=== PATIENT | male | born 1950 | race Caucasian/White ===

== ENCOUNTER 2016-12-25 00:55 | Emergency (ER) | payer MEDICARE, OTHER ==
[~2016-12-25] VITALS: Ht 172.7 cm; Wt 65.8 kg
[2016-12-25] MEDS ORDERED: NITROGLYCERIN 2% OINT 1 GM UNIT DOSE PACKET TOP ONE (01:15)
[2016-12-25] MEDS ORDERED: ASPIRIN 81 MG CHEW (CHILDREN'S ASA) PO ONE (01:15)
[2016-12-25 01:19] LABS: BASOPHILS # (AUTO) 0.1 10^3/uL (0.0-0.1); BASOPHILS % (AUTO) 1 % (0-10); EOSINOPHILS # (AUTO) 0.6 10^3/uL (0.0-0.3); EOSINOPHILS % (AUTO) 9 % (0-10); LYMPHOCYTES # (AUTO) 3.5 X 10^3 (1.0-4.0); LYMPHOCYTES % (AUTO) 53 % (12-44); MEAN CORPUSCULAR HEMOGLOBIN 28 PG (25-34); MEAN CORPUSCULAR HGB CONC 34 G/DL (32-36); MEAN CORPUSCULAR VOLUME 83 FL (80-99); MEAN PLATELET VOLUME 9.7 FL (7.4-10.4); MONOCYTES # (AUTO) 0.6 X 10^3 (0.0-1.0); MONOCYTES % (AUTO) 9 % (0-12); NEUTROPHILS # (AUTO) 1.9 X 10^3 (1.8-7.8); NEUTROPHILS % (AUTO) 28 % (42-75); PLATELET COUNT 318 10^3/uL (130-400); RED BLOOD COUNT 5.63 10^6/uL (4.35-5.85); WHITE BLOOD COUNT 6.7 10^3/uL (4.3-11.0)
[2016-12-25 01:28] LABS: INR 0.9 (0.8-1.4); PROTHROMBIN TIME PATIENT 12.7 SEC (12.2-14.7)
[2016-12-25 01:39] LABS: ALANINE AMINOTRANSFERASE 17 U/L (0-55); ALBUMIN 4.5 GM/DL (3.2-4.5); ANION GAP 13 MMOL/L (5-14); ASPARTATE AMINO TRANSFERASE 21 U/L (5-34); BILIRUBIN,TOTAL 0.8 MG/DL (0.1-1.0); BLOOD UREA NITROGEN 18 MG/DL (7-18); BUN/CREATININE RATIO 15; CALCIUM 10.1 MG/DL (8.5-10.1); CARBON DIOXIDE 24 MMOL/L (21-32); CHLORIDE 105 MMOL/L (98-107); CREATININE SERUM 1.21 MG/DL (0.60-1.30); GFR ESTIMATED 60; GLUCOSE 102 MG/DL (70-105); MAGNESIUM 2.1 MG/DL (1.8-2.4); SODIUM 142 MMOL/L (135-145); TOTAL PROTEIN 8.4 GM/DL (6.4-8.2)
[2016-12-25 01:45] LABS: TROPONIN I < 0.30 NG/ML (<0.30)
[2016-12-25 01:51] LABS: ABG BASE EXCESS -0.9 MMOL/L (-2.5-2.5); ABG HCO3 24 MMOL/L (23-27); ABG OXYGEN SATURATION 96 % (94-100); ABG PCO2 41 MMHG (35-45); ABG PH 7.38 (7.37-7.43); ABG PO2 70 MMHG (79-93); ALLENS TEST YES-POS; PATIENT TEMP 97.2
[2016-12-25] MEDS ORDERED: cloNIDine 0.2 MG (CATAPRES) TAB PO ONE ×2 (02:00→02:30)
[2016-12-25] MEDS ORDERED: methylPREDNISolone 125 MG (Solu-MEDROL) VIAL IVP ONE (02:00)
[2016-12-25] MEDS ORDERED: RX-ALBUTEROL INHALER (PROAIR) 8 GM IH STA (02:00)
--- NOTE | 2016-12-25 02:22 | ED Respiratory ---
General Chief Complaint: Respiratory Problems Stated Complaint: SOB,COUGH Nursing Triage Note: PT AMBULATED TO ROOM. PT COMPLAINS OF SOB FOR ABOUT A WEEK. PT STATES HE HAS HAD A DRY MOUTH AND COUGH WITH WHITE MUCUS SINCE THEN ALSO. Source: patient History of Present Illness Time seen by provider: 01:03 Initial Comments PT ARRIVES VIA POV FROM HOME C/O SHORTNESS OF BREATH, MOSTLY AT NIGHT--HAS HAD OFF AND ON FOR A FEW OF YEARS , BUT WORSE X 1 WEEK STATES HE TRIES TO LAY DOWN, AND PUTS A FAN IN HIS FACE ( SO I CAN BREATHE BETTER ) AND STARTS COUGHING ( OCCASIONAL WHITE SPUTUM) , AND THEN FEELS LIKE HE CAN'T BREATHE OR TAKE A DEEP BREATH ,AND THEN HIS MOUTH AND THROAT GET REAL DRY, AND SO ON...---STATES SYMPTOMS WILL LAST AN HOUR OR SO AND THEN GO AWAY. SYMPTOMS ARE BETTER ON ARRIVAL BUT STATES "AN HOUR AGO I COULDN'T BREATHE" NO CHEST PAIN AT ANY TIME NO FEVER/SWEATS/CHILLS NO SWELLING IN LEGS/ FEET OR PAIN IN CALVES. NO RECENT TRAVEL, PROLONGED SITTING , ETC. NO ACTUAL ORTHOPNEA, JUST THAT LAYING FLAT MAKES HIM COUGH, AND THEN HE STARTS COUGHING AND THEN FEELS LIKE HE CAN'T BREATHE. SYMPTOMS MUCH BETTER IF HE IS IN MORE OF AN UPRIGHT/HEAD ELEVATED POSITION. PT SMOKES 1 PPD HAS NEVER SOUGHT CARE FOR THESE SYMPTOMS SYMPTOMS NOT ACTUALLY ANY DIFFERENT TONIGHT THAN THEY HAVE BEEN, "JUST GET SCARED" PT DOES NOT HAVE A DR AND STATES HE HAS NEVER BEEN TO A HOSPITAL AND HAS NEVER SEEN A DR, AND HAS NEVER BEEN TO A PHARMACY. PT HAS A FRATERNAL TWIN BROTHER Allergies and Home Medications Allergies Coded Allergies: No Known Drug Allergies (Unverified , 12/25/16) Home Medications Clonidine HCl 0.2 Mg Tablet, 0.2 MG PO BID, #14 Prescribed by: ROMEL TRAN on 12/25/16 0224 Prednisone 10 Mg Tab, 40 MG PO DAILY, #12 Prescribed by: ROMEL TRAN on 12/25/164 Constitutional: no symptoms reported, No chills, No diaphoresis, No dizziness, No fever EENTM: see HPI (DRY THROAT/MOUTH) Respiratory: see HPI, cough, No dyspnea on exertion, phlegm, short of breath, No wheezing Cardiovascular: No chest pain, No edema, No palpitations, No syncope, No vascular heart diseas Gastrointestinal: no symptoms reported Genitourinary: no symptoms reported Musculoskeletal: no symptoms reported Skin: no symptoms reported Psychiatric/Neurological: No Symptoms Reported Hematologic/Lymphatic: No Symptoms Reported Immunological/Allergic: no symptoms reported Past Ayyhpjy-Azyrdl-Dtnuig Hx Patient Social History Alcohol Use: Denies Use Recreational Drug Use: No Smoking Status: Current Everyday Smoker (1 PPD) Type Used: Cigarettes 2nd Hand Smoke Exposure: Yes Recent Foreign Travel: No Contact w/Someone Who Travel: No Recent Infectious Disease Expo: No Recent Hopitalizations: No Physical Abuse: No Sexual Abuse: No Seasonal Allergies Seasonal Allergies: No Surgeries History of Surgeries: No Respiratory History of Respiratory Disorde: No Cardiovascular History of Cardiac Disorders: No Neurological History of Neurological Disord: No Genitourinary History of Genitourinary Disor: No Gastrointestinal History of Gastrointestinal Di: No Musculoskeletal History of Musculoskeletal Dis: No Endocrine History of Endocrine Disorders: No HEENT History of HEENT Disorders: No Cancer History of Cancer: No Psychosocial History of Psychiatric Problem: No Suicide Risk Score: 0 Integumentary History of Skin or Integumenta: No Blood Transfusions History of Blood Disorders: No Physical Exam Vital Signs Vital Sign - Last 12Hours 12/25/16 01:03 Temp 97.2 Pulse 102 Resp 20 B/P (MAP) 197/134 Pulse Ox 93 O2 Delivery Nasal Cannula O2 Flow Rate 2.00 FiO2 93 Capillary Refill : Less Than 3 Seconds General Appearance: thin, other (ANXIOUS, MILDLY TREMULOUS) HEENT: PERRL/EOMI, other (VERY POOR DENTITION--MOST TEETH MISSING AND FEW REMAINING TEETH WITH EXTENSIVE DECAY. ORAL MUCOSA SLIGHTLY DRY. 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, no motor/sensory deficits, alert, oriented x 3 Skin: normal color, warm/dry Progress/Results/Core Measures Results/Orders Lab Results Laboratory Tests Test 12/25/16 01:09 12/25/16 01:38 Range/Units White Blood Count 6.7 4.3-11.0 10^3/uL Red Blood Count 5.63 4.35-5.85 10^6/uL Hemoglobin 15.8 13.3-17.7 G/DL Hematocrit 47 40-54 % Mean Corpuscular Volume 83 80-99 FL Mean Corpuscular Hemoglobin 28 25-34 PG Mean Corpuscular Hemoglobin Concent 34 32-36 G/DL Red Cell Distribution Width 16.0 H 10.0-14.5 % Platelet Count 318 130-400 10^3/uL Mean Platelet Volume 9.7 7.4-10.4 FL Neutrophils (%) (Auto) 28 L 42-75 % Lymphocytes (%) (Auto) 53 H 12-44 % Monocytes (%) (Auto) 9 0-12 % Eosinophils (%) (Auto) 9 0-10 % Basophils (%) (Auto) 1 0-10 % Neutrophils # (Auto) 1.9 1.8-7.8 X 10^3 Lymphocytes # (Auto) 3.5 1.0-4.0 X 10^3 Monocytes # (Auto) 0.6 0.0-1.0 X 10^3 Eosinophils # (Auto) 0.6 H 0.0-0.3 10^3/uL Basophils # (Auto) 0.1 0.0-0.1 10^3/uL Prothrombin Time 12.7 12.2-14.7 SEC INR Comment 0.9 0.8-1.4 Activated Partial Thromboplast Time 28 24-35 SEC Sodium Level 142 135-145 MMOL/L Potassium Level 4.0 3.6-5.0 MMOL/L Chloride Level 105 98-107 MMOL/L Carbon Dioxide Level 24 21-32 MMOL/L Anion Gap 13 5-14 MMOL/L Blood Urea Nitrogen 18 7-18 MG/DL Creatinine 1.21 0.60-1.30 MG/DL Estimat Glomerular Filtration Rate 60 BUN/Creatinine Ratio 15 Glucose Level 102 70-105 MG/DL Calcium Level 10.1 8.5-10.1 MG/DL Magnesium Level 2.1 1.8-2.4 MG/DL Total Bilirubin 0.8 0.1-1.0 MG/DL Aspartate Amino Transf (AST/SGOT) 21 5-34 U/L Alanine Aminotransferase (ALT/SGPT) 17 0-55 U/L Alkaline Phosphatase 71 40-136 U/L Troponin I < 0.30 <0.30 NG/ML B-Type Natriuretic Peptide 36.3 <100.0 PG/ML Total Protein 8.4 H 6.4-8.2 GM/DL Albumin 4.5 3.2-4.5 GM/DL Blood Gas Puncture Site RT RAD Blood Gas Patient Temperature 97.2 Arterial Blood pH 7.38 7.37-7.43 Arterial Blood Partial Pressure CO2 41 35-45 MMHG Arterial Blood Partial Pressure O2 70 L 79-93 MMHG Arterial Blood HCO3 24 23-27 MMOL/L Arterial Blood Total CO2 25.0 21.0-31.0 MMOL/L Arterial Blood Oxygen Saturation 96 94-100 % Arterial Blood Base Excess -0.9 -2.5-2.5 MMOL/L Marcos Test YES-POS Blood Gas Ventilator Setting NO Blood Gas Inspired Oxygen 2 My Orders Orders - ROMEL TRAN DO Saline Lock/Iv-Start (12/25/16 01:13) Ekg Tracing (12/25/16 01:13) O2 (12/25/16 01:13) Monitor-Rhythm Ecg Trace Only (12/25/16 01:13) Arterial Blood Gas (12/25/16 01:13) BNP (12/25/16 01:13) Cbc With Automated Diff (12/25/16 01:13) Comprehensive Metabolic Panel (12/25/16 01:13) Magnesium (12/25/16 01:13) Protime With Inr (12/25/16 01:13) Partial Thromboplastin Time (12/25/16 01:13) Troponin I (12/25/16 01:13) Chest 1 View, Ap/Pa Only (12/25/16 01:13) Nitroglycerin Ointment (Nitrobid Ointme (12/25/16 01:15) Aspirin Chewable Tablet (Baby Aspirin Ch (12/25/16 01:15) Clonidine Tablet (Catapres Tablet) (12/25/16 02:00) Methylprednisolone Sod Succ (Solu-Medrol (12/25/16 02:00) Rx-Albuterol Inhaler (Rx-Proair) (12/25/16 02:00) Rt Request For Service (12/25/16 02:00) Clonidine Tablet (Catapres Tablet) (12/25/16 02:30) Medications Given in ED Current Medications Medications Dose Ordered Sig/Marcelino Route Start Time Stop Time Status Last Admin Dose Admin Aspirin 324 mg ONCE ONCE PO 12/25/16 01:15 12/25/16 01:16 DC 12/25/16 01:26 324 MG Clonidine HCl 0.2 mg ONCE ONCE PO 12/25/16 02:00 12/25/16 02:01 DC 12/25/16 02:06 0.2 MG Clonidine HCl 0.2 mg ONCE ONCE PO 12/25/16 02:30 12/25/16 02:31 DC 12/25/16 02:29 0.2 MG Methylprednisolone Sodium Succinate 125 mg ONCE ONCE IVP 12/25/16 02:00 12/25/16 02:01 DC 12/25/16 02:05 125 MG Nitroglycerin 1 inch ONCE ONCE TOP 12/25/16 01:15 12/25/16 01:16 DC 12/25/16 01:26 1 INCH Vital Signs/I&O Vital Sign - Last 12Hours 12/25/16 12/25/16 12/25/16 01:03 01:03 02:24 Temp 97.2 Pulse 102 Resp 20 B/P (MAP) 197/134 Pulse Ox 93 93 O2 Delivery Nasal Cannula Nasal Cannula Nasal Cannula O2 Flow Rate 2.00 2.00 2.00 FiO2 93 Blood Pressure Mean: 155 Progress Note : Progress Note UNEVENTFUL ER STAY PT DID NOT C/O SHORTNESS OF BREATH AND NO COUGH OR ANY OTHER SYMPTOMS DURING ER STAY BP DOWN WITH MEDICATIONS-147/92 AT DISMISSAL O2 SATS IN MID 90'S ON ROOM AIR AT DISMISSAL PT WAS ADVISED ON SMOKING CESSATION RT STAFF INSTRUCTED PT ON INHALER AND SPACER USE PT ADVISED OF DIET/LIFESTYLE CHANGES FOR BOTH HTN AND COPD PT ADVISED TO ESTABLISH WITH LOCAL PCP OF CHOICE FOR FURTHER CARE, HE WILL NEED ONGOING TREATMENT FOR HTN AND FURTHER EVALUATION OF BREATHING PROBLEMS-- LIST PROVIDED ECG Initial ECG Impression Time: 01:31 Initial ECG Rate: 87 Initial ECG Rhythm: Normal Sinus Initial ECG Comparisson: No Previous ECG Available Diagnostic Imaging Comments CXR--NO ACUTE PROCESS, PENDING RADIOLOGIST REVIEW Reviewed: Reviewed by Me Departure Impression Impression: Primary Impression: Nocturnal dyspnea Additional Impressions: Nocturnal cough UNCONTROLLED HTN-NEW DX SUSPECTED COPD Disposition: HOME, SELF-CARE Condition: Improved Departure-Patient Inst. Referrals: NO,LOCAL PHYSICIAN (PCP/Family) Primary Care Physician Patient Instructions: Breathing Exercises, COPD Including Emphysema (DC), Controlling Your Blood Pressure Through Lifestyle, DASH Diet, High Blood Pressure (DC), How to Use Your Metered Dose Inhaler (Adults), Quitting Smoking for Older Adults, Risk Factors for COPD Add. Discharge Instructions: STOP SMOKING USE INHALER 2 PUFFS EVERY 4 HOURS NEEDED ESTABLISH WITH LOCAL DR OF CHOICE THIS WEEK FOR FURTHER CARE All discharge instructions reviewed with patient and/or family. Voiced understanding. Scripts Prednisone (Prednisone) 10 Mg Tab 40 MG PO DAILY, #12 TAB Prov: ROMEL TRAN DO 12/25/16 Clonidine HCl (Clonidine HCl) 0.2 Mg Tablet 0.2 MG PO BID, #14 TAB Prov: ROMEL TRAN DO 12/25/16 Work/School Note: Local Medical Staff Listing ROMEL TRAN DO Dec 25, 2016 02:22
[2016-12-25] MEDS ORDERED: CLON0.2T PO (02:24)
[2016-12-25] MEDS ORDERED: PRD10T PO (02:24)
[2016-12-25 04:37] VITALS: BP 147/92
--- NOTE | 2016-12-25 07:44 | Diagnostic Imaging Report ---
INDICATION: Shortness of breath. Frontal chest obtained at 1:40 a.m. FINDINGS: Heart and mediastinal silhouette are normal in appearance. There are mild chronic appearing increased interstitial markings. There is no acute infiltrate or pneumothorax or pleural fluid. IMPRESSION: No acute process in the chest. Dictated by: Dictated on workstation # [id number]
== END 2016-12-25 03:25 | disposition home or self-care (01) ==
LOC: EDUNIT# 00:55 → ER 01:00
DX: R06.09 Other forms of dyspnea (principal); R05 Cough; I10 Essential (primary) hypertension; F17.210 Nicotine dependence, cigarettes, uncomplicated
CPT/HCPCS: 36415; 71010; 80053; 82805; 83735; 83880; 84484; 85025; 85610; 85730; 93005; 93041; 94640; 96374

== ENCOUNTER → 2017-04-20 | Outpatient (CLI) | payer MEDICARE, OTHER ==
[~2017-04-20] MED LIST: CLON0.2T PO; PRD10T PO
--- NOTE | 2017-04-20 15:40 | Diagnostic Imaging Report ---
INDICATION: Tobacco use qualifying for lung screening. COMPARISON: No prior examinations are available for comparison. TECHNIQUE: Multiple contiguous low-dose images were obtained through the chest utilizing a low-dose protocol. Sagittal and coronal reformations were then performed. FINDINGS: There is a 3 mm calcified granuloma in the anterior aspect of the right lower lobe on image 230 series 5. There is a 2 mm calcified granuloma in the caudal lateral aspect of the right lower lobe on image 247 series 5. There is a 3 mm calcified granuloma in the medial aspect of the right lung base on image 250 series 5. There are no other discrete pulmonary nodules masses or infiltrates. There are mild emphysematous changes. The heart size is normal. There are a few coronary artery calcifications. There is no pathologically enlarged adenopathy in the chest. There is no pleural or pericardial fluid. The visualized intra-abdominal structures are unremarkable. There is moderate thoracic spondylosis. IMPRESSION: 1. LungRads category 1B-continue low-dose screening in 12 months. 2. There are three calcified granulomas in the right lower lobe. ADDITIONAL FINDINGS: Minimal coronary artery calcifications. Dictated by: Dictated on workstation # [id number]
== END ==
LOC: RAD 13:33
PROVIDERS: ATTEND Family Medicine
DX: J84.10 Pulmonary fibrosis, unspecified (principal); Z72.0 Tobacco use

== ENCOUNTER → 2018-06-02 | Outpatient (CLI) | payer MEDICARE, OTHER ==
--- NOTE | 2018-06-02 13:33 | Diagnostic Imaging Report ---
INDICATION: History of tobacco use with a 100 pack year history. Quit smoking 1 to 2 years ago. TECHNIQUE: Noncontrast, low-dose CT imaging performed according to lung cancer screening protocol. COMPARISON: None FINDINGS: HEART/MEDIASTINUM: Heart size normal. A few scattered coronary artery calcifications are present. Mild wall calcification. Likely common origin of the brachiocephalic trunk of the left common carotid artery, normal anatomic variation. No aneurysmal dilatation. Small hiatal hernia. A few scattered mildly prominent but not pathological enlarged mediastinal lymph nodes. LUNGS: Moderately advanced emphysematous change about the lung parenchyma. No consolidating infiltrate. MEASURED PULMONARY NODULES: A few scattered calcified granulomas are present. No definitive new concerning pulmonary mass. OTHER: Advanced degenerative changes of the thoracic spine. IMPRESSION: 1. No new concerning pulmonary mass. Moderately advanced emphysematous changes about the lung parenchyma. 2. Scattered coronary artery calcifications. LUNG-RADS CATEGORY: 1b-S LUNG SCREENING MANAGEMENT/RECOMMENDATIONS: Continued annual screening with low dose CT in 12 months. Notes: Lung rads category 1 or 2 does not mean that an individual does not have lung cancer or other active disease process, but rather nothing is identified to meet criteria for current lung pathology. Therefore, continued annual lung cancer screening should be performed. It is noted that this is a low dose CT examination. As a technical result, the examination is limited in overall assessment compared to a conventional CT examination of the chest. Dictated by: Dictated on workstation # [id number]
== END ==
LOC: RAD 09:35
PROVIDERS: ATTEND Family Medicine
DX: Z12.2 Encounter for screening for malignant neoplasm of respiratory organs (principal); J43.9 Emphysema, unspecified; I25.10 Atherosclerotic heart disease of native coronary artery without angina pectoris; Z87.891 Personal history of nicotine dependence

== ENCOUNTER → 2019-08-23 | Outpatient (CLI) | payer MEDICARE, OTHER ==
--- NOTE | 2019-08-23 13:20 | Diagnostic Imaging Report ---
CT CHEST SCREENING WO TECHNIQUE: Low-dose unenhanced CT of the chest was performed according to the screening protocol. Coronal MIP and sagittal MPR reformats are created. Automatic exposure controls were utilized to keep dose as low as reasonably achievable. INDICATION: 69-year-old male with 100 pack year history of smoking. Quit smoking 3 years ago. COMPARISON: Low-dose CT chest of 06/02/2018 FINDINGS: Pulmonary findings: No endoluminal nodule within the trachea. No pulmonary mass or consolidation. Moderate centrilobular emphysema is unchanged. Scattered calcified pulmonary granulomas are unchanged. No new pulmonary nodule that would be suspicious for clinically active lung cancer. Extrapulmonary findings: No pleural effusion. No axillary lymphadenopathy. No mediastinal, hilar or juxtaphrenic lymphadenopathy. Coronary artery calcifications are unchanged. Normal caliber thoracic aorta. Esophagus is normal in appearance. No concerning focal osseous lesion. IMPRESSION: 1. No change in screening CT to indicate clinically active lung cancer. 2. Emphysema. Lung-RADS category: 1 - Negative Modifier: None. Recommendations: Continued annual screening with low-dose CT in 12 months. Dictated by: Dictated on workstation # [id number]
== END ==
LOC: RAD 11:48
PROVIDERS: ATTEND Family Medicine
DX: Z12.2 Encounter for screening for malignant neoplasm of respiratory organs (principal); Z87.891 Personal history of nicotine dependence; J43.9 Emphysema, unspecified; I10 Essential (primary) hypertension

== ENCOUNTER → 2020-05-08 | Outpatient (CLI) | payer MEDICARE, OTHER ==
[~2020-05-08] MED LIST changes: +CLN.2T PO; -CLON0.2T PO
--- NOTE | 2020-05-08 14:50 | Diagnostic Imaging Report ---
INDICATION: Screening for osteoporosis. COMPARISON: None available. FINDINGS: AP Spine L1-L4: [BMD (g/cm2): 1.231] [T-Score: -0.1] [Z-Score: 0.9] [BMD Previous: NA] [BMD % Change: NA] LT Hip Neck: [BMD (g/cm2): 1.034] [T-Score: -0.3] [Z-Score: 1.3] LT Hip Total: [BMD (g/cm2):1.060] [T-Score:-0.3] [Z-Score: 0.8] [BMD Previous: NA] [BMD % Change: NA] RT Hip Neck: [BMD (g/cm2):0.997] [T-Score:-0.6] [Z-Score:1.0] RT Hip Total: [BMD (g/cm2):1.077] [T-score:-0.2] [Z-Score:0.9] [BMD Previous:NA] [BMD % Change:NA] *Indicates significant change from prior examination based on 95% confidence level. World Health Organization criteria for BMD interpretation classify patients as Normal (T-score at or above -1.0), Osteopenic (T-score between -1.0 and -2.5) or Osteoporotic (T-score at or below -2.5). LIMITATIONS AND MODIFICATION: None. IMPRESSION: 1. Normal bone mineral density. 2. Baseline examination. 3. See below National Osteoporosis Foundation guidelines on when to potentially initiate pharmacologic therapy. Based on the National Osteoporosis Foundation Guidelines, pharmacologic treatment should be initiated in any of the following, unless clinical conditions suggest otherwise: * Any patient with prior fragility fracture of the hip or vertebrae. A spine fracture indicates 5X risk for subsequent spine fracture and 2X risk for subsequent hip fracture. * Osteoporosis (T-score <-2.5). * Postmenopausal women and men age 50 and older with low bone mass/osteopenia (T-score between -1.0 and -2.5) by DXA and 10-year major osteoporotic fracture greater than 20% or a 10-year probability of hip fracture greater than 3%. These fracture risks are supplied above in the FRAX score, if applicable. * Clinician judgement and/or patient preferences may indicate treatment for people with 10-year fracture probabilities above or below these levels. Dictated by: Dictated on workstation # [id number]
== END ==
LOC: RAD 14:30
PROVIDERS: ATTEND Family Medicine
DX: Z13.820 Encounter for screening for osteoporosis (principal)
CPT/HCPCS: 77080

== ENCOUNTER → 2020-08-28 | Outpatient (CLI) | payer MEDICARE, OTHER ==
--- NOTE | 2020-08-28 13:20 | Diagnostic Imaging Report ---
EXAMINATION: CT Lung Screening. INDICATION: 100 pack year smoking history, cessation 4 years ago. He presents for annual low-dose CT screening. TECHNIQUE: Noncontrast, low-dose CT imaging performed according to the lung cancer screening protocol. Auto Exposure Controls were utilize during the CT exam to meet ALARA standards for radiation dose reduction. COMPARISON: 08/23/2019. FINDINGS: Symmetrical air trapping and features of centrilobular emphysema are stable and chronic. No significant bronchiectasis. No findings to suggest active lung cancer. No suspicious mass or pulmonary nodularity. Noncontrasted images show no evidence for pathological lymph nodes in the kam[place], mediastinum, axilla, or chest wall. No suspicious lytic or sclerotic bony lesion. The visualized upper abdomen is stable and unremarkable. IMPRESSION: 1. No findings of active lung cancer. Background centrilobular emphysema, stable and chronic. 2. Continued low-dose CT screening followup in 1 year is recommended. LUNG-RADS CATEGORY:Category 1 MODIFIER:None OTHER SIGNIFICANT FINDINGS:As above Dictated by: Dictated on workstation # [id number]
== END ==
LOC: RAD 11:53
PROVIDERS: ATTEND Family Medicine
DX: Z12.2 Encounter for screening for malignant neoplasm of respiratory organs (principal); J43.2 Centrilobular emphysema; Z87.891 Personal history of nicotine dependence
CPT/HCPCS: 71271

== ENCOUNTER → 2022-04-22 | Outpatient (CLI) | payer MEDICARE, OTHER ==
--- NOTE | 2022-04-22 11:00 | Diagnostic Imaging Report ---
CT Lung Screening INDICATION:100 pack year smoking history cessation 5 years ago TECHNIQUE: Noncontrast, low-dose CT imaging performed according to the lung cancer screening protocol. Auto Exposure Controls were utilize during the CT exam to meet ALARA standards for radiation dose reduction. COMPARISON:08/28/2020 FINDINGS:Stable benign calcified granuloma right lower lobe noted. No suspicious lung mass. No findings of neoplasm. No pneumonia or edema. No effusion or pneumothorax. Atherosclerotic aorta nonaneurysmal. There is coronary artery atherosclerotic vascular calcifications chronic. No lymphadenopathy. Visualized upper abdomen nonacute. IMPRESSION:No acute finding or evidence for lung cancer, continued annual low-dose CT screening follow-up in one years time recommended LUNG-RADS CATEGORY:Category 1 MODIFIER:None OTHER SIGNIFICANT FINDINGS:None Dictated by: Dictated on workstation # [id number]
== END ==
LOC: RAD 09:40
PROVIDERS: ATTEND Family Medicine
DX: Z12.2 Encounter for screening for malignant neoplasm of respiratory organs (principal); Z87.891 Personal history of nicotine dependence
CPT/HCPCS: 71271